=== PATIENT | male | born 1975 | race Caucasian/White ===

== ENCOUNTER 2020-07-29 22:41 | Emergency (ER) | payer MEDICAID ==
[~2020-07-29] VITALS: Ht 182.9 cm; Wt 113.6 kg
--- NOTE | 2020-07-29 23:04 | PHYS DOC ---
Past History Past Medical History: Diabetes, Hypertension General Adult EDM: Chief Complaint: FEVER HPI: HPI: 44-year-old male who presents for evaluation of several days of URI symptoms. He endorses nasal congestion, nonproductive cough, as well as mild bifrontal headache. Also reports loss of taste and smell. No chest pain, dyspnea, neck pain or stiffness, abdominal pain, nausea or vomiting. Review of Systems: Review of Systems: Gen: No fever, chills. Eyes: No blurred vision, diplopia. ENT: No sore throat. Reports congestion. CV: No CP, palpitations. Resp. No SOB. Reports cough. GI: No abd pain, N/V. : No dysuria, hematuria. Neuro: No dizziness, weakness. Reports headache. MSK: Reports myalgias. Skin: No acute rash or lesion. Remainder of systems reviewed and negative unless otherwise specified. Allergies: Allergies: Allergies Coded Allergies Type Severity Reaction Last Updated Verified hydrocortisone Allergy Unknown 07/29/20 Yes Physical Exam: PE: Gen: NAD. Well nourished. Head: NC/AT. Eyes: No scleral icterus. No conjunctival injection. PERRL. ENT: MMM. Posterior OP clear. No tonsil hypertrophy or asymmetry. Uvula midline. Neck: Supple. NT. No meningismus. CV: RRR. Peripheral pulses intact. Resp: CTAB. No increased work of breathing. Abd: Soft. NT. ND. MSK: No peripheral cyanosis. No edema. Neuro: A&Ox3. Strength & sensation grossly intact throughout. Skin. Warm. Dry. Psych: Appropriate mood & affect. EKG: EKG: [] Radiology/Procedures: Radiology/Procedures: PROCEDURE: CHEST AP ONLY XR CHEST 1V History: Reason: Cough / Spl. Instructions: / History: Comparison: None. Findings: Ill-defined bibasilar opacities. No pleural effusion. Low lung volumes. Normal heart size. No pneumothorax. Impression: 1. Low lung volumes with ill-defined bibasilar opacities, likely atelectasis. If persistent clinical concern, recommend follow-up. Electronically signed by: Hector Jackson DO (07/29/2020 11:40 PM) [facility] Heart Score: C/O Chest Pain: N/A Risk Factors: Risk Factors: DM, Current or recent (<one month) smoker, HTN, HLP, family history of CAD, obesity. Risk Scores: Score 0 - 3: 2.5% MACE over next 6 weeks - Discharge Home Score 4 - 6: 20.3% MACE over next 6 weeks - Admit for Clinical Observation Score 7 - 10: 72.7% MACE over next 6 weeks - Early Invasive Strategies Course & Med Decision Making: Course & Med Decision Making Pertinent Labs and Imaging studies reviewed. (See chart for details) In summary, 44-year-old male who presents for evaluation of a few days of URI symptoms. No chest pain or dyspnea. Unremarkable physical examination. Chest x-ray with likely bibasilar atelectatic changes. No well-defined consolidation concerning for pneumonia. His symptoms may represent possibility of COVID-19. He was swabbed, but results remain pending. Patient will be treated symptomatically. Outpatient follow-up. Return precautions given. Dragon Disclaimer: Dragon Disclaimer: This electronic medical record was generated, in whole or in part, using a voice recognition dictation system. Departure Departure: Impression: Primary Impression: Viral syndrome Disposition: 01 DC HOME SELF CARE/HOMELESS Condition: STABLE Referrals: BENJAMÍN FOUNTAIN MD (PCP) Patient Instructions: Viral Syndrome Additional Instructions: You COVID-19 test results remain pending, and may take up to 2-3 days. Take tylenol or motrin as needed for fever/pain. Scripts Albuterol Sulfate (PROAIR HFA INHALER) 8.5 Gm Hfa.aer.ad 2 PUFF IH PRN Q4-6HRS PRN for wheezing for 21 Days, #1 INHALER 0 Refills Prov: LECHANTAL H DO 07/29/20 Benzonatate (TESSALON PERLE) 100 Mg Capsule 1 CAP PO TID for cough, #21 CAP Prov: LE,CHANTAL H DO 07/29/20 LE,CHANTAL H DO Jul 29, 2020 23:04
--- NOTE | 2020-07-29 23:42 | RAD ---
XR CHEST 1V History: Reason: Cough / Spl. Instructions: / History: Comparison: None. Findings: Ill-defined bibasilar opacities. No pleural effusion. Low lung volumes. Normal heart size. No pneumot horax. Impression: 1. Low lung volumes with ill-defined bibasilar opacities, likely atelectasis. If persistent clinical concern, recommend follow-up. Electronically signed by: Hector Jackson DO (07/29/2020 11:40 PM) [facility]
[2020-07-29 23:49] VITALS: BP 162/95
[2020-07-29] MEDS ORDERED: ALBU2.5V8 IH (23:51)
[2020-07-29] MEDS ORDERED: BENZ100C PO (23:51)
== END 2020-07-30 | disposition home or self-care (01) ==
LOC: ER 22:41
DX: U07.1 COVID-19 (principal); B34.9 Viral infection, unspecified; E11.9 Type 2 diabetes mellitus without complications; I10 Essential (primary) hypertension; Z88.5 Allergy status to narcotic agent
CPT/HCPCS: 71045; 99284; C9803; U0003; U0005

== ENCOUNTER 2021-06-14 21:47 | Emergency (ER) | payer OTHER, MEDICAID ==
[~2021-06-14] VITALS: Ht 182.9 cm; Wt 114.8 kg
[~2021-06-14 21:47] MED LIST: ALBU2.5V8 IH; BENZ100C PO
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
[2021-06-14] MEDS ORDERED: ACETAMINOPHEN 500 MG TABLET PO ONE (22:45)
[2021-06-14] MEDS ORDERED: IBUPROFEN 600 MG TABLET. PO ONE (22:45)
[2021-06-14 22:58] VITALS: BP 148/86
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
== END 2021-06-14 23:04 | disposition home or self-care (01) ==
LOC: ER 21:47
DX: M25.532 Pain in left wrist (principal); M79.645 Pain in left finger(s); E11.9 Type 2 diabetes mellitus without complications; I10 Essential (primary) hypertension; Z88.8 Allergy status to other drugs, medicaments and biological substances; Y08.89XA Assault by other specified means, initial encounter; Y93.89 Activity, other specified; Y92.89 Other specified places as the place of occurrence of the external cause; Y99.8 Other external cause status
CPT/HCPCS: 73110; 73130; 99284